=== PATIENT | male | born 1960 | race Caucasian/White ===

== ENCOUNTER 2017-08-16 08:06 | Emergency (ER) | payer OTHER ==
--- NOTE | 2017-08-16 08:17 | ED Physician Documentation ---
PD HPI URI - Stated complaint Stated Complaint: COUGH/CONGESTION - Chief complaint Chief Complaint: Resp - History obtained from History obtained from: Patient - History of Present Illness Timing - onset: How many days ago (4-5) Timing duration: Days Timing details: Gradual onset, Still present Associated symptoms: Chills, Sore throat, Dry cough. 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 denies: Rhinorrhea / runny nose Throat: reports: Sore throat (afger coughing hard) Cardiac: reports: Chest pain / pressure. denies: Palpitations, Pedal edema, Calf pain Respiratory: reports: Dyspnea, Cough. denies: Wheezing GI: denies: Abdominal Pain, Nausea, Vomiting, Diarrhea Skin: denies: Rash, Abrasion (s) Neurologic: reports: Generalized weakness. denies: Focal weakness, Numbness, Near syncope PD PAST MEDICAL HISTORY - Past Medical History Past Medical History: Yes Respiratory: None Neuro: None - Past Surgical History Past Surgical History: Yes Ortho: Shoulder arthroplasty - Present Medications Home Medications: Ambulatory Orders Medication Instructions Recorded Confirmed Albuterol Sulf [Ventolin Hfa 1 - 2 puffs INH Q4HR PRN #1 inhaler 08/16/17 Inhaler] Benzonatate [Tessalon] 100 mg PO TID PRN #25 capsule 08/16/17 Dexamethasone [Decadron] 4 mg PO DAILY #5 tablet 08/16/17 Doxycycline Monohydrate 100 mg PO BID #14 tablet 08/16/17 guaiFENesin/CODEINE [Robitussin AC] 10 ml PO Q6H PRN #240 ml 08/16/17 - Allergies Allergies/Adverse Reactions: Allergies Allergy/AdvReac Type Severity Reaction Status Date / Time No Known Drug Allergies Allergy Verified 08/16/17 08:10 - Social History Does the pt smoke?: No Smoking Status: Never smoker Does the pt drink ETOH?: No Does the pt have substance abuse?: No - Immunizations Immunizations are current?: Yes - POLST Patient has POLST: No PD ED PE NORMAL - Vitals Vital signs reviewed: Yes - General General: Alert and oriented X 3, Well developed/nourished, Other (appears uncofortable and is leaning forward with cough and is trying to get deeper breath, but is breathing instead fast and shallow.) - HEENT HEENT: Atraumatic, PERRL - Neck Neck: Supple, no meningeal sign, No adenopathy - Cardiac Cardiac: RRR, No murmur - Respiratory Respiratory: No respiratory distress (no accessory msucles. ). No: Clear bilaterally (some moderate wheezing bilaterally ) - Abdomen Abdomen: Normal bowel sounds, Soft, Non tender, Non distended - Derm Derm: Other - Extremities Extremities: No deformity, No edema, No calf tenderness / cord - Neuro Neuro: Alert and oriented X 3 Motor: Obeys Commands - Psych Psych: Normal mood, Normal affect Results - Vitals Vitals: Vital Signs - 24 hr 08/16/17 08/16/17 08/16/17 08:08 09:02 10:10 Temperature 36.0 C L Heart Rate 99 79 71 Respiratory 26 H 24 21 Rate Blood Pressure 166/82 H 126/82 H O2 Saturation 99 96 08/16/17 11:10 Temperature Heart Rate Respiratory 20 Rate Blood Pressure O2 Saturation 95 Oxygen O2 Source Room air - Rads (name of study) chest Radiology: Prelim report reviewed, EMP read contemporaneously (no infiltrates nor effusions. ) PD MEDICAL DECISION MAKING - ED course Complexity details: reviewed results, re-evaluated patient (improved with meds and some with neb treatment. He feels able to go home. ), considered differential, d/w patient Departure - Departure Disposition: 01 Home, Self Care Clinical Impression: Pleuritic chest pain Upper respiratory infection Qualifiers: URI type: unspecified URI Qualified Code(s): J06.9 - Acute upper respiratory infection, unspecified Condition: Stable Record reviewed to determine appropriate education?: Yes Instructions: ED Upper Resp Infec No Abx Tx Follow-Up: [facility] [Provider Group] Chano Ferris MD [Physician No Access] - Patt Cruz MD [Physician No Access] - Prescriptions: Albuterol Sulf [Ventolin Hfa Inhaler] 1 - 2 puffs INH Q4HR PRN #1 inhaler PRN Reason: Shortness Of Air/Wheezing Benzonatate [Tessalon] 100 mg PO TID PRN #25 capsule PRN Reason: Cough Dexamethasone [Decadron] 4 mg PO DAILY #5 tablet Doxycycline Monohydrate 100 mg PO BID #14 tablet guaiFENesin/CODEINE [Robitussin AC] 10 ml PO Q6H PRN #240 ml PRN Reason: Cough Comments: Drink lots of fluids. Humidified air often through the day at home to try to loosen up secretions. Decadron anti-inflammatory daily for 5 more days. Doxycycline antibiotic twice daily for a week. Tessalon and Robitussin with codeine as needed for cough. Follow-up with your primary care. I did list a couple of pulmonologists in [facility] and [place] [facility] to see if they take referrals. The particular names are not as important as the pulmonary group in general as a reference phone number. Recheck if not improving over the next few days. Discharge Date/Time: 08/16/17 11:10
[2017-08-16] MEDS ORDERED: DEXAMETHASONE 10 MG/ML VIAL PO STA (08:44)
[2017-08-16] MEDS ORDERED: IPRATROPIUM/ALBUTEROL 3 ML NEB INH STA (08:44)
[2017-08-16] MEDS ORDERED: BENZONATATE 100 MG CAPSULE PO STA (08:44)
[2017-08-16] MEDS ORDERED: KETOROLAC 60 MG/2 ML VIAL IM STA (08:45)
--- NOTE | 2017-08-16 08:50 | XRAY Preliminary Report ---
Exam: XR CHEST 2 VIEW PA/LAT IMPRESSION: 1. No acute disease in the chest. [facility] SITE ID: [id number]
--- NOTE | 2017-08-16 08:53 | XRAY Report ---
EXAM: CHEST RADIOGRAPHY EXAM DATE: 08/16/2017 08:28 AM. CLINICAL HISTORY: Severe cough and shortness of breath for 3 days. COMPARISON: None. TECHNIQUE: 2 views. FINDINGS: Lungs/Pleura: No focal opacities evident. No pleural effusion. No pneumothorax. Normal volumes. Mediastinum: Heart size and mediastinal contour are within normal limits. Other: Degenerative changes of the thoracic spine and both shoulders. IMPRESSION: 1. No acute disease in the chest. [facility] Referring Provider Line: [phone] SITE ID: [id number]
[2017-08-16] MEDS ORDERED: DEXAMETHASONE 10 MG/ML VIAL ONE (08:55)
[2017-08-16] MEDS ORDERED: BENZONATATE 100 MG CAPSULE PO ONE (08:55)
[2017-08-16] MEDS ORDERED: KETOROLAC 30 MG/ML VIAL ONE (08:55)
[2017-08-16] MEDS ORDERED: IPRATROPIUM/ALBUTEROL 3 ML NEB INH ONE (09:05)
[2017-08-16] MEDS ORDERED: guaiFENesin/CODEINE 5 ML UDC PO STA (09:10)
[2017-08-16] MEDS ORDERED: guaiFENesin/CODEINE 5 ML UDC ONE (09:22)
[2017-08-16 10:12] VITALS: BP 126/82
== END 2017-08-16 11:10 | disposition home or self-care (01) ==
LOC: ED 08:06
DX: R07.81 Pleurodynia (principal); J06.9 Acute upper respiratory infection, unspecified
CPT/HCPCS: 71020; 94640; 96372; 99283; A9270; J7620

== ENCOUNTER 2017-08-22 09:29 | Emergency (ER) | payer OTHER ==
[2017-08-22 09:46] VITALS: BP 116/79
--- NOTE | 2017-08-22 10:09 | XRAY Preliminary Report ---
Exam: XR CHEST 2 VIEW PA/LAT IMPRESSION: No convincing acute cardiopulmonary abnormality. Low lung volumes with bibasal atelectasi sAnkit RADIRicki SITE ID: [id number]
--- NOTE | 2017-08-22 10:12 | XRAY Report ---
EXAM: CHEST RADIOGRAPHY EXAM DATE: 08/22/2017 09:55 AM. CLINICAL HISTORY: Cough, diff breathing. COMPARISON: 08/16/2017. TECHNIQUE: 2 views. FINDINGS: Lungs/Pleura: Lung volumes are low. There is mild basal atelectasis. No focal opacities evident. No p leural effusion. No pneumothorax. Normal volumes. Mediastinum: Heart and mediastinal contours are unremarkable. Other: None. IMPRESSION: No convincing acute cardiopulmonary abnormality. Low lung volumes with bibasal atelectasi sAnkit [facility] Referring Provider Line: [phone] SITE ID: [id number]
[2017-08-22] MEDS ORDERED: cefTRIAXone 1 GM VIAL IM STA (10:32)
[2017-08-22] MEDS ORDERED: KETOROLAC 60 MG/2 ML VIAL IM STA (10:32)
--- NOTE | 2017-08-22 10:36 | ED Physician Documentation ---
PD HPI URI - Stated complaint Stated Complaint: WEAKNESS - Chief complaint Chief Complaint: Resp - History obtained from History obtained from: Patient, Family - History of Present Illness Timing - onset: How many days ago (10) Timing duration: Days (10) Timing details: Abrupt onset, Still present Associated symptoms: Nasal congestion, Rhinorrhea, Dry cough, Chest pain, Dyspnea. No: Fever Improves by: Rest, Medication Worsened by: Activity Similar symptoms before: Diagnosis (pneumonia) Recently seen: Emergency Dept - Additional information Additional information: 57 y/o male with a cough for the past 10 days was seen in the ED 6 days ago and placed on a course of doxycycline and decadron. He relates that he had some relief of his symptoms with something given by injection in his last visit ( toradal) and not with the duoneb. He reports no relief with the liquid cough syrup and some relief with the tessalon. He finished his decadron 5 day course and his breathing was worsening while on the decadron. He has left chest pain with inspiration. Review of Systems Constitutional: denies: Fever Eyes: denies: Decreased vision Ears: denies: Ear pain Nose: reports: Rhinorrhea / runny nose, Congestion Throat: denies: Sore throat Cardiac: reports: Chest pain / pressure. denies: Palpitations, Pedal edema, Calf pain Respiratory: reports: Dyspnea, Cough, Wheezing GI: denies: Abdominal Pain, Nausea, Vomiting : denies: Dysuria, Frequency PD PAST MEDICAL HISTORY - Past Medical History Respiratory: None Neuro: None - Past Surgical History Past Surgical History: Yes Ortho: Shoulder arthroplasty - Present Medications Home Medications: Ambulatory Orders Medication Instructions Recorded Confirmed Albuterol Sulf [Ventolin Hfa 1 - 2 puffs INH Q4HR PRN #1 inhaler 08/16/17 Inhaler] Benzonatate [Tessalon] 100 mg PO TID PRN #25 capsule 08/16/17 08/22/17 Doxycycline Monohydrate 100 mg PO BID #14 tablet 08/16/17 08/22/17 guaiFENesin/CODEINE [Robitussin AC] 10 ml PO Q6H PRN #240 ml 08/16/17 08/22/17 Amox/Clav 875/125 [Augmentin] 1 each PO Q12H #20 tablet 11/26/17 Benzonatate [Tessalon] 100 - 200 mg PO TID PRN #20 capsule 08/22/17 - Allergies Allergies/Adverse Reactions: Allergies Allergy/AdvReac Type Severity Reaction Status Date / Time No Known Drug Allergies Allergy Verified 08/22/17 09:45 - Social History Does the pt smoke?: No Smoking Status: Never smoker Does the pt drink ETOH?: No Does the pt have substance abuse?: No - Immunizations Immunizations are current?: Yes - POLST Patient has POLST: No PD ED PE NORMAL - Vitals Vital signs reviewed: Yes - General General: Well developed/nourished, Other (strong coughing paroxysms rack the patient's body. ) - HEENT HEENT: Atraumatic, PERRL, EOMI, Other (both TM's are inflamed with flattening of the landmarks on the left only ) - Neck Neck: Supple, no meningeal sign, No bony TTP - Cardiac Cardiac: RRR, No murmur - Respiratory Respiratory: No respiratory distress, Other (rhonchi in the left base is low and rumbling. ) - Abdomen Abdomen: Soft, Non tender - Back Back: No CVA TTP, No spinal TTP - Derm Derm: Normal color, Warm and dry, No rash - Extremities Extremities: No deformity, No edema - Neuro Neuro: No motor deficit, No sensory deficit Eye Opening: Spontaneous Motor: Obeys Commands Verbal: Oriented GCS Score: 15 - Psych Psych: Normal mood, Normal affect Results - Vitals Vitals: Vital Signs - 24 hr 08/22/17 09:41 Temperature 37.0 C Heart Rate 78 Respiratory 16 Rate Blood Pressure 116/79 O2 Saturation 97 Oxygen O2 Source Room air - Rads (name of study) 2 view chest Radiology: Prelim report reviewed (Impression: No convincing acute cardiopulmonary abnormality. Low lung volumes with bibasilar atelectasis.), EMP read indepedently (On my read I am concerned about a easy infiltrate at the left base corresponding to physical exam findings. Mildly changed from films done 6 days ago.) PD MEDICAL DECISION MAKING - ED course Complexity details: reviewed old records, reviewed results, re-evaluated patient , considered differential, d/w patient, d/w family ED course: 57-year-old male has continued to have a cough and coughing paroxysms despite taking doxycycline over the past week. On examination he has evidence of otitis media and I am considering this a treatment failure of doxycycline. Examination of the chest x-ray shows a subtle difference from exam done 1 week ago with a question of infiltrate in the left base. The patient is having pleuritic pain in the left lung and this is relieved with the use of Toradol here in the emergency department again. He is given an injection of Rocephin and we will change his antibiotic to Augmentin he takes Aleve and Tylenol at home for pain management for his arthritis and I recommended he use that for treatment of this pain. Departure - Departure Disposition: Home, Self Care Clinical Impression: Pleuritic chest pain Otitis media Qualifiers: Otitis media type: suppurative Chronicity: acute Laterality: bilateral Recurrence: not specified as recurrent Spontaneous tympanic membrane rupture: without spontaneous rupture Qualified Code(s): H66.003 - Acute suppurative otitis media without spontaneous rupture of ear drum, bilateral Instructions: ED Otitis Media Acute Adult Follow-Up: [facility] [Provider Group] Prescriptions: Amox/Clav 875/125 [Augmentin] 1 each PO Q12H #20 tablet Benzonatate [Tessalon] 100 - 200 mg PO TID PRN #20 capsule PRN Reason: Cough
[2017-08-22] MEDS ORDERED: BENZONATATE 100 MG CAPSULE PO STA (10:40)
[2017-08-22] MEDS ORDERED: KETOROLAC 60 MG/2 ML VIAL ONE (10:41)
[2017-08-22] MEDS ORDERED: cefTRIAXone 1 GM VIAL ONE (10:41)
[2017-08-22] MEDS ORDERED: LIDOCAINE 1% 2 ML VIAL ONE (10:42)
[2017-08-22] MEDS ORDERED: BENZONATATE 100 MG CAPSULE PO ONE (10:54)
== END 2017-08-22 11:41 | disposition home or self-care (01) ==
LOC: ED 09:29
DX: R07.81 Pleurodynia (principal); H66.003 Acute suppurative otitis media without spontaneous rupture of ear drum, bilateral
CPT/HCPCS: 71020; 96372; 99283; 99284; A9270

== ENCOUNTER 2019-08-07 10:58 | Emergency (ER) | payer OTHER ==
--- NOTE | 2019-08-07 11:19 | ED Physician Documentation ---
PD HPI URI - Stated complaint Stated Complaint: COUGH - Chief complaint Chief Complaint: Resp - History obtained from History obtained from: Patient - History of Present Illness Timing - onset: How many days ago (10) Timing duration: Days (10) Timing details: Still present Pain level now: 2 Associated symptoms: Dry cough, Chest pain (Rib cage when he coughs), Dyspnea. No: Fever, Ear pain, Nasal congestion, Rhinorrhea, Sore throat, Hemoptysis, NVD, Bilateral edema Contributing factors: No: Sick contact, Travel Improves by: MDI/nebulizer (Minimal relief) Similar symptoms before: Diagnosis (History of pneumonia) Recently seen: Not recently seen (59-year-old man who presents with complaints that he had a dry cough that has turned productive with a little bit a yellow sputum for the past 10 days and is gotten increasingly short of breath. He says he is coughing 3 hours a day and cannot lay flat. He has been taking TheraFlu and had a leftover inhaler but they do not seem to be helping much. He gets dizzy when he stands up but he has not passed out. Denies chest pain other than some pain wrapping around both rib cages when he is coughing. He denies any history of heart disease. Denies history of asthma although he has used inhalers in the past. No fever, sore throat or stuffy nose. No nausea or vomiting. He thinks he may have picked something up when he was at a race for radio controlled cars because there is a lot of "shawanda dishes". Denies peripheral edema or history of DVT. 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 denies: Pedal edema Respiratory: reports: Dyspnea, Cough GI: denies: Abdominal Pain, Nausea, Vomiting : denies: Dysuria Neurologic: reports: Near syncope PD PAST MEDICAL HISTORY - Past Medical History Respiratory: None - Past Surgical History Past Surgical History: Yes Ortho: Shoulder arthroplasty - Present Medications Home Medications: Ambulatory Orders Medication Instructions Recorded Confirmed Albuterol Sulf [Ventolin Hfa 1 - 2 puffs INH Q4HR PRN #1 inhaler 08/16/17 08/22/17 Inhaler] Benzonatate [Tessalon] 100 mg PO TID PRN #25 capsule 08/16/17 08/22/17 Doxycycline Monohydrate 100 mg PO BID #14 tablet 08/16/17 08/22/17 guaiFENesin/CODEINE [Robitussin AC] 10 ml PO Q6H PRN #240 ml 08/16/17 08/22/17 Amox/Clav 875/125 [Augmentin] 1 each PO Q12H #20 tablet 08/22/17 Benzonatate [Tessalon] 100 - 200 mg PO TID PRN #20 capsule 08/22/17 Albuterol Sulf [Ventolin Hfa 1 - 2 puffs INH Q4HR PRN #1 inhaler 08/07/19 Inhaler] Azithromycin [Zithromax] 0 mg PO DAILY #6 tablet 08/07/19 Benzonatate [Tessalon Perle] 100 - 200 mg PO TID PRN #30 capsule 08/07/19 - Allergies Allergies/Adverse Reactions: Allergies Allergy/AdvReac Type Severity Reaction Status Date / Time No Known Drug Allergies Allergy Verified 08/22/17 09:45 - Social History Does the pt smoke?: No Smoking Status: Never smoker Does the pt drink ETOH?: No Does the pt have substance abuse?: No - Immunizations Immunizations are current?: Yes - POLST Patient has POLST: No PD ED PE NORMAL - Vitals Vital signs reviewed: Yes - General General: Alert and oriented X 3, No acute distress, Well developed/nourished, Other (Patient is panting and is speaking in a whisper.) - HEENT HEENT: Atraumatic, PERRL, Moist mucous membranes, Pharynx benign - Neck Neck: Supple, no meningeal sign, No adenopathy - Cardiac Cardiac: RRR, No murmur, Strong equal pulses - Respiratory Respiratory: Other (Panting. He coughed when I asked him to take a deep breath and I could hear some wheezing at the bases very faint bilaterally.) - Abdomen Abdomen: Normal bowel sounds, Other (Obese) - Derm Derm: Normal color, Warm and dry, No rash - Extremities Extremities: No edema - Neuro Neuro: Alert and oriented X 3, No motor deficit, No sensory deficit, Normal speech - Psych Psych: Normal mood, Normal affect Results - Vitals Vitals: Vital Signs - 24 hr 08/07/19 08/07/19 08/07/19 11:03 11:31 11:52 Temperature 36.6 C 37 C Heart Rate 81 78 76 Respiratory 20 19 20 Rate Blood Pressure 170/85 H 137/84 H O2 Saturation 96 98 08/07/19 12:23 Temperature 36.6 C Heart Rate 66 Respiratory 18 Rate Blood Pressure 130/76 O2 Saturation 95 Oxygen O2 Source Room air - Labs Labs: Laboratory Tests 08/07/19 08/07/19 11:45 11:45 WBC 9.3 RBC 5.01 Hgb 14.5 Hct 42.7 MCV 85.2 MCH 28.9 MCHC 34.0 RDW 14.7 Plt Count 172 MPV 9.9 Neut # (Auto) 6.1 Lymph # (Auto) 2.1 [place] # (Auto) 0.8 Eos # (Auto) 0.3 Baso # (Auto) 0.0 Absolute Nucleated RBC 0.00 Nucleated RBC % 0.0 Sodium 139 Potassium 3.7 Chloride 107 Carbon Dioxide 21 Anion Gap 11.0 BUN 12 Creatinine 0.9 Estimated GFR (MDRD) 87 L Glucose 108 H Calcium 8.8 - Rads (name of study) CXR Radiology: EMP read contemporaneously (Neg infiltrate) PD MEDICAL DECISION MAKING - ED course Complexity details: reviewed results, re-evaluated patient, d/w patient ED course: An IV was established. The patient was given Toradol 30 mg IV. He was given hydrocodone liquid and an albuterol nebulizer. He felt much better following those interventions coughing had diminished tremendously. He presented a specimen that was mostly liquid without any phlegm and it. It was not sent for evaluation. Labs are normal. His chest x-ray does not show any clear infiltrate. He is placed on a Zithromax Z-Ilan, given a refill on his inhaler prescription. I recommended Delsym [id number] for coughing and he has de clined any codeine cough syrup. Did provide prescription for Tessalon. Recommended use of Motrin or Aleve as an anti-inflammatory. Follow-up with his primary care provider for reevaluation if his symptoms persist. Departure - Departure Disposition: 01 Home, Self Care Clinical Impression: Bronchitis Condition: Good Instructions: ED Upper Resp Infec Abx Tx Follow-Up: [facility] [Provider Group] Prescriptions: Albuterol Sulf [Ventolin Hfa Inhaler] 1 - 2 puffs INH Q4HR PRN #1 inhaler PRN Reason: Shortness Of Air/Wheezing Azithromycin [Zithromax] 0 mg PO DAILY #6 tablet Benzonatate [Tessalon Perle] 100 - 200 mg PO TID PRN #30 capsule PRN Reason: Cough Comments: Take the Zithromax as prescribed. Use the inhaler with the spacer every 4 hours for the next couple of days and then twice a day for the next 10 to 12 days. Use Delsym [id number]-[id number] as a cough suppressant. May also use the Tessalon Perles as a cough suppressant. [place] or Aleve [id number] anti- inflammatory. Recheck if your symptoms are worsening or follow-up with your primary care provider for further evaluation if not improving.
[2019-08-07] MEDS ORDERED: ALBUTEROL NEB 2.5 MG/3 ML INH STA (11:40)
[2019-08-07] MEDS ORDERED: HYDROcodone/ACETAM 7.5 MG/325 MG 15 ML UDC PO STA (11:40)
[2019-08-07] MEDS ORDERED: KETOROLAC 30 MG/ML VIAL IVP STA (11:40)
[2019-08-07 11:52] LABS: BASOPHILS % (AUTO) 0.4 %; EOSINOPHILS # (AUTO) 0.3 10^3/uL (0.0-0.7); EOSINOPHILS % (AUTO) 2.9 %; HGB - HEMOGLOBIN 14.5 g/dL (14.0-18.0); LYMPHOCYTES # (AUTO) 2.1 10^3/uL (1.5-3.5); LYMPHOCYTES % (AUTO) 22.5 %; MEAN CORPUSCULAR HEMOGLOBIN 28.9 pg (27.0-31.0); MEAN CORPUSCULAR VOLUME 85.2 fL (80.0-94.0); MEAN PLATELET VOLUME 9.9 fL (7.4-11.4); MONOCYTES # (AUTO) 0.8 10^3/uL (0.0-1.0); MONOCYTES % (AUTO) 8.2 %; NEUTROPHILS # (AUTO) 6.1 10^3/uL (1.5-6.6); NEUTROPHILS % (AUTO) 65.6 %; PLT - PLATELET COUNT 172 10^3/uL (130-450); RED BLOOD COUNT 5.01 10^6/uL (4.70-6.10); RED CELL DISTRIBUTION WIDTH 14.7 % (12.0-15.0); WHITE BLOOD COUNT 9.3 x10^3/uL (4.8-10.8)
[2019-08-07 12:02] LABS: CALCIUM 8.8 mg/dL (8.5-10.3); CREATININE 0.9 mg/dL (0.6-1.2)
[2019-08-07 12:25] VITALS: BP 130/76
--- NOTE | 2019-08-07 12:58 | XRAY Report ---
Reason: cough Procedure Date: 08/07/2019 Accession Number: [id number] / [id number] Procedure: XR - Chest 2 View X-Ray CPT Code: 25280 Final Report FULL RESULT: EXAM: CHEST RADIOGRAPHY EXAM DATE: 08/07/2019 12:23 PM. CLINICAL HISTORY: Cough. COMPARISON: CHEST 2 VIEW PA/LAT 08/22/2017 9:54 AM. TECHNIQUE: 2 views. FINDINGS: Lungs/Pleura: Mild basilar hypoventilatory change. No other focal opacities evident. No pleural effusion. No pneumothorax. Normal volumes. Mediastinum: Heart and mediastinal contours are unremarkable. Other: Degenerative change in the spine and AC joints similar to previous. Postsurgical change right humeral head. IMPRESSION: Minor bibasilar hypoventilatory change. Otherwise negative. [facility]
== END 2019-08-07 13:05 | disposition home or self-care (01) ==
LOC: ED 10:58
DX: J40 Bronchitis, not specified as acute or chronic (principal)
CPT/HCPCS: 36415; 71046; 80048; 85025; 94640; 94664; 96374; 99284; A9270

== ENCOUNTER 2022-11-25 08:18 | Outpatient (CLI) | payer OTHER ==
--- NOTE | 2022-11-25 14:01 | MRI Report ---
PROCEDURE: LUMBAR SPINE WO INDICATIONS: SEVERE DEGENERATIVE CHANGES, LOSS OF DISC SPACE TECHNIQUE: Noncontrast sagittal T1 spin echo and T2 fast echo, sagittal STIR, axial T1 and T2 fast spin echo thr ough the lumbar spine. In cases with scoliosis, additional coronal T2 fast spin echo may be performe d. COMPARISON: None. FINDINGS: Image quality: Excellent. Alignment and Curvature: There is normal bony alignment. Bone Marrow: Marrow is of normal overall signal. No acute vertebral body compression fractures. Spinal Cord: Conus medullaris terminates at the L1 level. Visualized cord demonstrates normal signa l and size. Paraspinous Soft Tissues: No paravertebral masses. T11-12: No disc space narrowing. The facets are hypertrophic bilaterally causing [id number]-[id number] for aminal stenosis. T12-L1: No disc bulge. The foramina and central canal are patent. L1-L2: No disc bulge. The foramina and central canal are patent. L2-L3: Diffuse disc bulge and disc osteophytes with bilateral facet hypertrophy cause moderate magaly ateral foraminal stenosis. The ligamentum flavum are hypertrophic. The central canal has mild stenosi s. L3-L4: Diffuse disc bulge and disc osteophytes with bilateral facet hypertrophy cause moderate bila teral foraminal stenosis. The ligamentum flavum are hypertrophic. The central canal has moderate sten osis. L4-L5: Grade 1 anterolisthesis with facet hypertrophy and ligamentum flavum hypertrophy cause mild bilateral foraminal stenosis. The central canal has severe stenosis. L5-S1: Facet hypertrophy on the left causes moderate left foraminal stenosis. The right foramen is patent. The central canal is patent. IMPRESSION: 1. Multilevel lumbar spondylosis most severe at L4-5 causing foraminal stenosis as detailed above. 2. Severe central canal stenosis at L4-5 impinges upon the cauda equina. Reviewed by: Calixto Taveras on 11/25/2022 1:59 PM PST Approved by: Calixto Taveras on 11/25/2022 1:59 PM PST Station ID: [id number]
--- NOTE | 2022-11-25 17:27 | MRI Report ---
PROCEDURE: KNEE WO - RT INDICATIONS: RT KNEE PAIN TECHNIQUE: Noncontrast sagittal PD fast spin echo and T2 fast spin echo with fat saturation, sagittal 3-D gradie nt sequence with fat saturation; coronal T1 spin echo and PD fast spin echo with fat saturation, and axial PD fast spin echo with fat saturation through the knee. COMPARISON: None. FINDINGS: Image quality: Excellent. Menisci: Oblique tear involving posterior horn of medial meniscus extending to inferior articulating surface is seen. The lateral meniscus is intact. Low-grade partial-thickness tear involving both medi al and lateral posterior meniscal root ligaments is seen. Cruciate ligaments: The anterior cruciate ligament is thickened with intrasubstance T2 hyperintense signal. The posterior cruciate ligament is intact. Medial structures: The medial collateral ligament appears mildly thickened. The posterior oblique l igament, semimembranosus tendon insertions, and oblique popliteal ligament, and meniscocapsular junct ion appear intact. Visualized portions of the pes anserinus tendons appear normal. No abnormal burs al fluid. Lateral structures: The lateral collateral ligament, long and short heads of the biceps femoris tend on appear intact. There is low-grade partial-thickness tear involving proximal popliteus tendon exten ding to musculotendinous junction with adjacent fluid. Iliotibial band appears normal. Anterior structures: The quadriceps and patellar tendons appear intact. Patellar alignment is lizeth l. No femoral trochlear dysplasia or ventral trochlear prominence. No edema in the infrapatellar fa t pad. Bones and cartilage: No bone marrow contusions or fractures. Moderate tricompartmental osteoarthriti s and chondromalacia is noted most notably in medial femoral tibial compartment. Joint space: There is small amount of joint fluid. No Gonzalez's cyst. There are suggestion of small lo ose bodies in posterior lateral aspect of joint space measures up to 6 mm in size series 3 images 30 through 32. Normal appearing synovial plicae are incidentally noted. IMPRESSION: 1. Oblique tear involving posterior horn of medial meniscus extending to inferior articulating surfac e. No evidence of lateral meniscal tear. Low-grade partial-thickness tear involving both medial and l ateral posterior meniscal root ligaments. 2. Sprain/low-grade intrasubstance partial thickness tear involving anterior cruciate ligament. No AC L rupture. The PCL is intact. 3. Mild MCL sprain. 4. Low-grade partial-thickness tear involving proximal popliteus tendon extending to musculotendinous junction. 5. Moderate tricompartmental osteoarthritis and chondromalacia as above. No fracture or dislocation. Small amount of joint fluid with suggestion of small loose bodies as above. Reviewed by: Jay Jay Kirkpatrick MD on 11/25/2022 5:26 PM PST Approved by: Jay Jay Kirkpatrick MD on 11/25/2022 5:26 PM PST Station ID: [id number]
== END 2022-11-25 08:19 | disposition home or self-care (01) ==
LOC: DI 08:18
PROVIDERS: ATTEND Physician Assistant
DX: M47.816 Spondylosis without myelopathy or radiculopathy, lumbar region (principal); M48.061 Spinal stenosis, lumbar region without neurogenic claudication; S83.241A Other tear of medial meniscus, current injury, right knee, initial encounter; S83.511A Sprain of anterior cruciate ligament of right knee, initial encounter; S83.411A Sprain of medial collateral ligament of right knee, initial encounter; S86.121A Laceration of other muscle(s) and tendon(s) of posterior muscle group at lower leg level, right leg, initial encounter; M17.11 Unilateral primary osteoarthritis, right knee; M94.261 Chondromalacia, right knee

== ENCOUNTER 2023-02-01 10:28 | Outpatient (CLI) | payer OTHER ==
[2023-02-01 21:25] VITALS: BP 152/93
--- NOTE | 2023-02-01 21:25 | SLEEP CARE CONSULTATION ---
Information from patient questionnaire entered by Terese Cooper. I have reviewed and concur with the information entered by Terese Cooper. This document represents the service I personally performed and the decisions made by me, Jessa Marte MD, [facility]. History of Present Illness Service Date and Time: 02/01/2023 1028 Reason for Visit: New patient Additional HPI information: I had the pleasure of seeing Mr. Johnson today regarding the possibility of him having a sleep disorder. 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 He thinks he averages 5 hours a night. The patient tells me that he normally goes to bed around 10:30 pm, and it takes him approximately 10 - 17 minutes to fall asleep. He is not taking any sleep aid. He has been told that he snores loudly and irregularly at night. He has never been observed to stop breathing in his sleep. His sleeps in a separate room. He can recall waking up on the average of 0 - 3 times during the night. Most of the time he wakes up because of back pain and unknown reason. He has never awakened because of his own snoring, choking, or having to gasp for air. There is a lot of tossing and turning in his sleep. No somniloquy (sleep talking) or somnambulism (sleep walking). Generally, here is no recollection of dreams. In the morning he usually gets up out of the bed around 12:45 6:30 a.m. not feeling refreshed nor rested. He usually does not have a morning headache. During the day he does not feel sleepy and fatigued. His score on Ludlow Sleepiness Scale is 2 out of 24. He never has fallen asleep while driving nor has had any accident due to sleepiness. He usually does not take naps during the day. He reports occasionally having impaired concentration during the day. Past Medical History Past Medical History: reports: Arthritis, Other (allergic rhinitis) Social History The patient's occupation is a [employer]. Patient is and lives in [place]. Have you smoked in the past 12 months: No Alcohol use: No Family History Family Hx Sleep Apnea: Other: Sleep apnea - Treated (son) Allergies and Home Medications Drug allergies reviewed: Yes Home medication list reviewed: Yes Allergy and home medication list: Allergies No Known Drug Allergies Allergy (Verified 01/29/23 08:44) Review of Systems Cardiovascular: denies: high blood pressure, palpitations, chest pain, irregular heart rate or pulse, leg or foot swelling, have to sleep sitting up, other Respiratory: denies: shortness of breath, wheeze, sputum production, chronic cough, other Gastrointestinal: denies: heartburn, difficulty swallowing, nausea, vomitting, diarrhea, abdominal pain, other Urinary: denies: incontinence, frequency, urgency, impotence, other Neurological: denies: headaches, seizure, head trauma, disorientation, speech dysfunction, gait or balance problems, fainting or unconsciousness, other Psychiatric: denies: Attention Deficit Hyperactivity, anxiety, depression, mood disorder, claustrophobia, other Ear/Nose/Throat: reports: nasal congestion Endocrine: denies: thyroid disease, history of goiter, sluggishness, too hot or cold, excessive thirst, increased appetite, increased urination, unexplained weakness, other Immunologic: denies: sneezing, rash, itching, allergies to food or environment, other Physical Exam Vital signs obtained and entered by: He Marte Blood Pressure: 152/93 Cuff size: regular Heart Rate: 76 O2 Saturation: 97 Height: 5 ft 11 in Weight: 292 lb Body Mass Index: 40.7 BMI Classification: Morbidly Obese Neck circumference: 18 Mood/affect: normal HEENT: No craniofacial malformation Nostrils: patent to airflow Turbinates: normal Septum: midline Mouth and throat: narrow oropharynx Soft palate: long Hard palate: normal Uvula: normal Uvula visualization: 25% Mallampati Class III Tongue: enlarged in size with teeth porter on lateral edges Tonsils: small Chin and jaw: normal size and position Neck: normal w/o lymphadenopathy or thyromegaly Heart: regular rate and rhythm Lungs: clear bilaterally Extremities: 2+ edema Neurologic: intact Impression and Plan IMPRESSION: 1. Obstructive Sleep Apnea-Hypopnea Syndrome, as suggested by history of loud and irregular snoring, frequent awakenings during the night, unrefreshed sleep, and cognitive impairment. Narrow oropharynx and obesity are common predisposing factors for obstructive sleep apnea-hypopnea syndrome. Untreated obstructive sleep apnea can also cause hypertension. I recommend proceeding to polysomnography to confirm the diagnosis and to assess severity. If he has significant sleep disordered breathing, a manual CPAP titration study will also be performed to find the optimal treatment pressure. I informed the patient of what the sleep studies involve and after some discussion, he agreed to proceed. 2. Insomnia, possibly due to the patient being a short sleeper because despite getting on the average of 5 hours of sleep a night, he is not sleepy during the day (Ludlow Sleepiness Scale score is = 2). However, there may be a component of sleep state misperception. Plan: 1. Schedule polysomnography + manual CPAP titration study and return in 1 to 2 weeks after the study to discuss result and initiate therapy. 2. Avoid long distance driving or when feeling sleepy. 3. Avoid alcohol, sedative and muscle relaxants around bedtime. 4. Attempt to lose weight. Follow up with Sleep Care in: 1-2 months Plan: in-lab PSG Visit Type: In Office Time Spent with Patient (minutes): 15 Provider Statement: I spent 100% of the Face to Face Visit with the patient with greater than 50% spent counseling the patient and coordination of care.
== END 2023-02-01 10:29 | disposition home or self-care (01) ==
LOC: SC 10:28
PROVIDERS: ATTEND Internal Medicine Pulmonary Disease
DX: R06.83 Snoring (principal); G47.8 Other sleep disorders; R41.89 Other symptoms and signs involving cognitive functions and awareness; E66.01 Morbid (severe) obesity due to excess calories; Z68.41 Body mass index [BMI] 40.0-44.9, adult
CPT/HCPCS: 99202; 99212